=== PATIENT | female | born 1955 | race Caucasian/White ===

== ENCOUNTER 2018-08-08 22:21 | Emergency (ER) | payer MEDICARE ==
--- NOTE | 2018-08-09 00:12 | ED ---
Skin/Abscess/FB HPI - General Chief complaint: Skin/Abscess/Foreign Body Stated complaint: cellulitis Time Seen by Provider: 08/08/18 23:44 Source: patient, family Mode of arrival: ambulatory Limitations: no limitations - History of Present Illness Initial comments: This patient is 62-year-old woman presenting to be evaluated for pain and swelling to the anterior aspect of the right pretibial leg. The patient states that the symptoms do remind her of a previous blood clot that she had over 15 years ago. She is currently not taking any anticoagulant. She denies any chest symptoms, including no chest pain, dyspnea, cough or hemoptysis. No palpitations, lightheadedness or syncope. She does note that she has had some leg pain over the past few days. MD complaint: discoloration -: days(s) Location: RLE Severity: mild Quality: dull Consistency: constant Improves with: none Worsens with: none - Related Data Previous Rx's Medication Instructions Recorded Ibuprofen 800 mg PO TID #20 tablet 08/09/18 Rivaroxaban [Xarelto] 15 mg PO BID #42 tab 08/09/18 Sulfamethox-Tmp 800-160Mg [Bactrim 1 each PO Q12HR #14 tab 08/09/18 Ds] Allergies Allergy/AdvReac Type Severity Reaction Status Date / Time No Known Allergies Allergy Verified 08/08/18 23:31 Review of Systems ROS Statement: Those systems with pertinent positive or pertinent negative responses have been documented in the HPI. ROS Other: All systems not noted in ROS Statement are negative. Constitutional: Denies: fever, chills Respiratory: Denies: cough, dyspnea, hemoptysis Cardiovascular: Denies: chest pain, palpitations, edema, syncope Gastrointestinal: Denies: abdominal pain, vomiting Musculoskeletal: Denies: back pain Skin: Denies: rash Neurological: Denies: headache, weakness, numbness Hematological/Lymphatic: Denies: easy bleeding Past Medical History Additional Past Medical History / Comment(s): DVT, cellulitis, back pain History of Any Multi-Drug Resistant Organisms: None Reported Past Surgical History: Adenoidectomy, Hysterectomy, Tonsillectomy Past Psychological History: Bipolar Smoking Status: Current every day smoker Past Alcohol Use History: None Reported Past Drug Use History: None Reported General Exam Limitations: no limitations General appearance: alert, in no apparent distress Respiratory exam: Present: normal lung sounds bilaterally. Absent: respiratory distress, wheezes, rales, rhonchi, stridor Cardiovascular Exam: Present: regular rate, normal rhythm, normal heart sounds. Absent: systolic murmur, diastolic murmur, rubs, gallop GI/Abdominal exam: Present: soft. Absent: distended, tenderness, guarding, rebound Extremities exam: Present: full ROM, tenderness, normal capillary refill, calf tenderness, other (Patient does have some mild right calf tenderness. There is also some swelling to the right pretibial area. There is. Be a superficial phlebitis in this area) Neurological exam: Present: alert. Absent: motor sensory deficit Skin exam: Present: warm, dry, intact, normal color. Absent: rash, erythema Course Vital Signs 08/08/18 08/09/18 22:53 01:21 Temperature 98.5 F 98.1 F Pulse Rate 87 77 Respiratory 20 16 Rate Blood Pressure 100/66 103/72 O2 Sat by Pulse 98 99 Oximetry Medical Decision Making - Medical Decision Making Patient's 62-year-old woman with right calf and pretibial pain without any history of trauma. She does have history of previous DVT. Given that today's ultrasound is abnormal, discussed risks and benefits of novell anticoagulant treatment, and patient does elect to start this and follow-up. Patient stable for outpatient treatment. Hestia score zero. Disposition Clinical Impression: DVT (deep venous thrombosis) Disposition: HOME SELF-CARE Condition: Good Instructions: Phlebitis (ED) Prescriptions: Ibuprofen 800 mg PO TID #20 tablet Rivaroxaban [Xarelto] 15 mg PO BID #42 tab Sulfamethox-Tmp 800-160Mg [Bactrim Ds] 1 each PO Q12HR #14 tab Is patient prescribed a controlled substance at d/c from ED?: No Referrals: Nonstaff,Physician [Primary Care Provider] - 1-2 days
[2018-08-09] MEDS ORDERED: IBUPROFEN 400 MG TAB PO STA (00:13)
[2018-08-09] MEDS ORDERED: SULFAMETHOX-TMP 800-160MG 1 EACH TAB PO STA (00:13)
--- NOTE | 2018-08-09 00:51 | US ---
EXAMINATION TYPE: US venous doppler duplex LE RT DATE OF EXAM: 08/09/2018 12:25 AM COMPARISON: NONE CLINICAL HISTORY: Pain. Right leg pain. History of DVT per patient. Not currently taking blood thinne rs. SIDE PERFORMED: Right TECHNIQUE: The lower extremity deep venous system is examined utilizing real time linear array sonog justyna with graded compression, doppler sonography and color-flow sonography. VESSELS IMAGED: External Iliac Vein (EIV) Common Femoral Vein Deep Femoral Vein Greater Saphenous Vein * Femoral Vein Popliteal Vein Small Saphenous Vein * Proximal Calf Veins (* superficial vessels) Right Leg: Appears positive for possible chronic DVT. Very small veins visualized with thready color flow in the proximal femoral vein and no color flow in the mid femoral vein. Unable to compress pro ximal and mid femoral vein. IMPRESSION: There is evidence of acute and chronic deep venous thrombosis in the right femoral vein.
[2018-08-09 01:22] VITALS: BP 103/72; PULSE 77; RESP 16; TEMP 98.1
== END 2018-08-09 01:22 | disposition home or self-care (01) ==
LOC: EC 22:21
DX: I82.411 Acute embolism and thrombosis of right femoral vein (principal); F17.200 Nicotine dependence, unspecified, uncomplicated
CPT/HCPCS: 99283